=== PATIENT | female | born 1980 | race Caucasian/White ===

== ENCOUNTER 2017-10-13 23:01 | Emergency (ER) | payer SELFPAY ==
[~2017-10-13] VITALS: Ht 172.7 cm; Wt 152.3 kg
[2017-10-13] MEDS ORDERED: MAXALT10 MG PO (23:29)
[2017-10-13 23:39] LABS: HEMATOCRIT 37.6 % (36.0-46.0); MCHC 31.9 G/DL (30.0-36.0); MCV 84.7 FL (83-99); MEAN PLAT.VOLUME 10.8 uM^3 (9.5-12.4); PLATELET COUNT 346 K/uL (156-360); RBC DIS.WIDTH-CV 14.3 % (11.8-14.6); RBC DIS.WIDTH-SD 43.9 % (39-53); RED BLOOD COUNT 4.44 M/uL (3.80-5.20); WHITE BLOOD COUNT 12.4 K/uL (4.1-10.2)
[2017-10-13 23:47] LABS: CHLORIDE 105 mEq/L (99-109)
[2017-10-13 23:48] LABS: POTASSIUM 4.2 mEq/L (3.7-5.4); SODIUM 139 mEq/L (136-147)
[2017-10-13 23:49] LABS: GLUCOSE 109 mg/dL (70-99)
[2017-10-13 23:51] LABS: ANION GAP 12 MEQ/L (2-14)
[2017-10-13 23:54] LABS: GFR ESTIMATE (CALCULATED) > 59 mL/min/; UREA NITROGEN (BUN) 18 mg/dL (9-23)
[2017-10-13 23:59] LABS: TROP-I INTERPRETATION NEGATIVE; TROPONIN-I < 0.01 ng/mL (0.0-0.30)
[2017-10-14 00:01] LABS: QUANTITATIVE HCG < 4.0 MIU/ML
[2017-10-14] MEDS ORDERED: ZITHROMAX Z-PA250 MG PO (01:11)
[2017-10-14] MEDS ORDERED: CHERATUSSIN AC473 ML PO (01:11)
[2017-10-14] MEDS ORDERED: PREDNISONE10 M1 PO (01:11)
[2017-10-14 01:51] VITALS: BP 105/69
== END 2017-10-14 01:52 | disposition home or self-care (01) ==
LOC: EME 23:01
DX: J06.9 Acute upper respiratory infection, unspecified (principal)
CPT/HCPCS: 71020; 80048; 84484; 84702; 85027; 93005; 94640; 99281; 99285